=== PATIENT | female | born 1945 | race Two or more races ===

== ENCOUNTER 2022-11-10 06:05 | Day surgery (SDC) | payer OTHER ==
[~2022-11-10 06:05] MED LIST: GLIPIZIDE XL10 MG PO; JANUMET XR 50-1 EAC1 PO; SYNTHROID100 MCG PO; TRENTAL PO
[2022-11-10] MEDS ORDERED: MACROBID 100 M100 MG PO (09:45)
[2022-11-10] MEDS ORDERED: TRAM1TAB98 PO (09:46)
[2022-11-11] MEDS ORDERED: COZAAR25 MG (23:20)
== END 2022-11-10 15:40 | disposition home or self-care (01) ==
LOC: CIR.AMB 06:05
PROVIDERS: ATTEND Obstetrics & Gynecology Gynecology
DX: N81.11 Cystocele, midline (principal); N81.6 Rectocele; N81.5 Vaginal enterocele; I10 Essential (primary) hypertension; Z20.822 Contact with and (suspected) exposure to COVID-19

== ENCOUNTER 2022-11-11 22:39 | Emergency (ER) | payer OTHER ==
[~2022-11-11] VITALS: Ht 160 cm; Wt 60.8 kg
[~2022-11-11 22:39] MED LIST changes: +MACROBID 100 M100 MG PO; +TRAM1TAB98 PO
[2022-11-11] MEDS ORDERED: COZAAR25 MG (23:20)
== END 2022-11-12 03:18 ==
LOC: ER 22:39
DX: T83.098A Other mechanical complication of other urinary catheter, initial encounter (principal); Z91.011 Allergy to milk products; E11.9 Type 2 diabetes mellitus without complications; Z79.84 Long term (current) use of oral hypoglycemic drugs; I10 Essential (primary) hypertension